=== PATIENT | female | born 1950 | race Caucasian/White ===

== ENCOUNTER 2020-04-13 23:41 | Day surgery (SDC) | payer MEDICARE ==
[~2020-04-13] VITALS: Ht 167.6 cm; Wt 77.1 kg
[2020-04-14 00:22] LABS: BASOPHILS % 0.5 % (0.0-1.0); EOSINOPHILS # (AUTO) 0.2 (0.0-0.4); EOSINOPHILS % 3.4 % (0.0-6.0); HEMATOCRIT 41.5 % (34.2-44.1); HEMOGLOBIN 13.2 g/dL (12.0-16.0); LYMPHOCYTES # (AUTO) 1.2 (1.0-3.2); LYMPHOCYTES % 17.7 % (18.0-39.1); MEAN CORPUSCULAR HEMOGLOBIN 29.5 pg (28-32); MEAN CORPUSCULAR HGB CONC 31.8 g/dL (31-35); MEAN CORPUSCULAR VOLUME 92.8 fL (81-99); MONOCYTES # (AUTO) 0.4 (0.2-0.8); MONOCYTES % 5.6 % (4.4-11.3); NEUTROPHILS # (AUTO) 4.7 (2.1-6.9); NEUTROPHILS % 72.2 % (38.7-80.0); PLATELET COUNT 149 x10e3/uL (140-360); RED BLOOD COUNT 4.47 x10e6/uL (3.6-5.1); RED CELL DISTRIBUTION WIDTH 14.7 % (11.7-14.4)
[2020-04-14 00:39] LABS: ALANINE AMINOTRANSFERASE 33 IU/L (0-55); ALBUMIN 3.7 g/dL (3.5-5.0); ALKALINE PHOSPHATASE 72 IU/L (40-150); ANION GAP 17.5 mmol/L (8-16); BLOOD UREA NITROGEN 19 mg/dL (7-26); BUN/CREATININE RATIO 21 (6-25); CALCIUM 9.1 mg/dL (8.4-10.2); CARBON DIOXIDE 17 mmol/L (22-29); CHLORIDE 112 mmol/L (98-107); CREATINE KINASE 50 IU/L (29-168); CREATININE, SERUM 0.89 mg/dL (0.57-1.11); EST GLOMERULAR FILTRATION RATE > 60 ML/MIN (60-); GLUCOSE 166 mg/dL (74-118); POTASSIUM 3.5 mmol/L (3.5-5.1); SODIUM 143 mmol/L (136-145)
[2020-04-14] MEDS ORDERED: CEFEPIME 1GM/NS 0.9% 50 ML 50 ML IV STA (00:39)
[2020-04-14] MEDS ORDERED: VANCOMYCIN 1GM/NS 250 ML 250 ML IV STA (00:39)
[2020-04-14] MEDS ORDERED: ALTEPLASE 100 MG/VIAL ONE (00:39)
[2020-04-14] MEDS ORDERED: AMIODARONE HCL 900 MG in DEXTROSE 5% 500ML 500 ML IV SCH (00:40)
[2020-04-14] MEDS ORDERED: MIDAZOLAM HCL 50 MG in SODIUM CHLORIDE 0.9% 100 ML 90 ML IV PRN (00:45)
[2020-04-14] MEDS ORDERED: AMIODARONE 900MG 500 ML IV ONE (00:47)
[2020-04-14] MEDS ORDERED: FENTANYL 2000MCG/NS 250 250 ML ONE (01:07)
[2020-04-14] MEDS ORDERED: MIDAZOLAM HCL 5MG/ML 10ML VIAL 100 ML IV ONE (01:07)
[2020-04-14] MEDS ORDERED: MIDAZOLAM HCL 2 MG/2 ML VIAL ONE ×2 (01:07→02:09)
[2020-04-14] MEDS ORDERED: NOREPINEPHRINE 8 MG/D5W 250 ML 250 ML ONE (01:08)
[2020-04-14] MEDS ORDERED: NOREPINEPHRINE INJ 4MG/4ML 8 MG in DEXTROSE 5% 250ML 250 ML IV SCH (01:15)
[2020-04-14] MEDS ORDERED: FENTANYL CITRATE/PF 100MCG/2 ML INJ ONE (02:09)
[2020-04-14] MEDS ORDERED: NITROGLYCERIN/D5W 200 MCG/ML 250 ML ONE (02:10)
[2020-04-14] MEDS ORDERED: HEPARIN SOD (PORCINE) 1000 UNIT/ML 30ML ONE (02:10)
[2020-04-14] MEDS ORDERED: IOPAMIDOL 370 MG/ML 200 ML INFUS..BTL INJ ONE ×2 (02:10→02:43)
[2020-04-14] MEDS ORDERED: SODIUM CHLORIDE 0.9% 1000ML 1,000 ML ONE (02:10)
[2020-04-14] MEDS ORDERED: LIDOCAINE HCL 2% LOCAL 20 ML VIAL ONE (02:10)
[2020-04-14] MEDS ORDERED: HEPARIN SOD/SOD CHLORIDE 2,000 ML ONE (02:10)
[2020-04-14] MEDS ORDERED: FUROSEMIDE INJ 10 MG/ML 4 ML VIAL ONE (02:49)
[2020-04-14] MEDS ORDERED: POTASSIUM CHLORIDE 20MEQ/100ML 100 ML ONE (02:51)
[2020-04-14 04:38] LABS: ABG PCO2 43 mmHg (35-45); ABG PH 7.31 (7.35-7.45); ABG PO2 303 mmHg (80-105)
[2020-04-14 04:39] LABS: ABG HCO3 22 mmol/L (22-26); ABG TCO2 23
== END 2020-04-14 | disposition short-term general hospital (02) ==
LOC: ER 04-14 → RAD 04-14 16:57
PROVIDERS: ATTEND Student in an Organized Health Care Education/Training Program
DX: I49.01 Ventricular fibrillation (principal); R09.2 Respiratory arrest; I50.23 Acute on chronic systolic (congestive) heart failure; R60.9 Edema, unspecified; I25.810 Atherosclerosis of coronary artery bypass graft(s) without angina pectoris; R94.31 Abnormal electrocardiogram [ECG] [EKG]; Z11.52 Encounter for screening for COVID-19; Z95.1 Presence of aortocoronary bypass graft; Z95.810 Presence of automatic (implantable) cardiac defibrillator; J96.91 Respiratory failure, unspecified with hypoxia; Z20.822 Contact with and (suspected) exposure to COVID-19
CPT/HCPCS: 31500; 33967; 36556; 36415; 71045; 76937; 80053; 82550; 82553; 82805; 83880; 84484; 85025; 85379; 92950; 92960; 93005; 93459; 94002; 99284; C1766 ×2; C1769; C1887; J0692; J1644; J1940; J2001; J2250 ×2; J3010; J3370; J3480; J7030; Q9967; U0002; 33970; 99152; 99153